=== PATIENT | female | born 1950 | race Asian ===

== ENCOUNTER 2021-01-28 15:18 | Outpatient (REF) | payer MEDICARE, MEDICAID, SELFPAY ==
--- NOTE | ~2021-01-28 | MM_ITS ---
EXAMINATION: MM SCREENING DIGITAL BREAST TOMOSYNTHESIS, BILATERAL CLINICAL INFORMATION: Screening. Asymptomatic. The lifetime risk of breast cancer based on the Tyrer-Cuzick Model is 3.1%. COMPARISON: Mammography: March 05, 2017 and March 18, 2015 TECHNIQUE: Digital breast tomosynthesis is performed in both the craniocaudal and mediolateral oblique views along with computer-aided detection (CAD). Synthesized 2D images are generated from the tomosynthesis. FINDINGS: There are scattered areas of fibroglandular density (ACR BI-RADS breast composition Category b). There are no significant masses, abnormal calcifications, or other abnormalities. MM/MM tomosynthesis screening BI IMPRESSION: There are no significant changes from prior study. ASSESSMENT: BI-RADS 1: Negative RECOMMENDATION: Routine annual mammography screening. This patient's information was entered into a reminder system with a target due date for their next mammogram.
== END 2021-01-28 15:19 | disposition home or self-care (01) ==
LOC: HO.MAMMO 15:18
PROVIDERS: PCP Internal Medicine; Visit Provider Internal Medicine
DX: Z12.31 Encounter for screening mammogram for malignant neoplasm of breast (principal)
CPT/HCPCS: 77063; 77067

== ENCOUNTER 2021-02-05 10:10 | Outpatient (REF) | payer MEDICARE, MEDICAID, SELFPAY ==
[2021-02-05 14:29] LABS: MANUAL DIFF FLAG NO
[2021-02-05 14:48] LABS: Basophils Percent Auto 0.5 % (0-2); Eosinophils Absolute Auto 0.2 X10*3/uL (0.0-0.4); Eosinophils Percent Auto 2.5 % (0-4); Hematocrit 38.5 % (37-47); Hemoglobin 12.6 g/dl (12.0-16.0); Imm Gran Abs Auto 0.01 X10*3/uL (0.00-0.03); Imm Gran Pct Auto 0.2 % (0.0-0.4); Lymphocytes Absolute Auto 2.6 X10*3/uL (1.2-4.9); Lymphocytes Percent Auto 41.1 % (20-40); Mean Corpuscular HGB Conc 32.7 g/dl (31.0-35.0); Mean Corpuscular Hemoglobin 27.5 pg (27.0-33.0); Mean Corpuscular Volume 84.1 fL (80-98); Mean Platelet Volume 12.1 fL (9.4-12.3); Monocytes Absolute Auto 0.6 X10*3/uL (0.1-1.2); Monocytes Percent Auto 9.5 % (2-11); Neutrophils Absolute Auto 2.9 X10*3/uL (2.0-8.3); Neutrophils Percent Auto 46.2 % (45-73); Platelet Count 252 X10*3/uL (160-400); Red Blood Count 4.58 X10*6/uL (4.20-5.50); Red Cell Distribution Width 12.5 % (11.0-16.0); White Blood Count 6.3 X10*3/uL (4.8-10.8)
[2021-02-05 14:56] LABS: Estimated Average Glucose 240 mg/dL
[2021-02-05 15:07] LABS: Alanine Aminotransferase 13 U/L (0-31); Albumin Level 4.2 g/dL (3.5-5.0); Alkaline Phosphatase 51 U/L (39-117); Anion Gap 17 (12-20); Aspartate Amino Transferase 15 U/L (5-31); Bilirubin Total 0.4 mg/dL (0.0-1.0); Blood Urea Nitrogen 14 mg/dL (9-16); Calcium 9.4 mg/dL (8.4-10.2); Carbon Dioxide 25 mmol/L (22-29); Chloride 100 mmol/L (96-108); Cholesterol 258 mg/dL; Estimated Glomerular Filt Rate > 60; Glucose Fasting 226 mg/dL (60-99); HDL Cholesterol 70 mg/dL; LDL Cholesterol Calculated 152 mg/dl; Potassium 4.6 mmol/L (3.3-5.1); Sodium 137 mmol/L (135-145); Total Protein 6.9 g/dL (6.5-8.0); Triglycerides 183 mg/dL
[2021-02-05 15:07] LABS: Creatinine Urine 74.01 mg/dL; Microalbumin Urine < 5.0 mg/L
[2021-02-05 15:36] LABS: Vitamin B12 626 pg/mL (200-900)
== END 2021-02-05 10:11 | disposition home or self-care (01) ==
LOC: HO.10HDL 10:10
PROVIDERS: Visit Provider Internal Medicine
DX: E11.9 Type 2 diabetes mellitus without complications (principal); E78.00 Pure hypercholesterolemia, unspecified; F06.8 Other specified mental disorders due to known physiological condition; I10 Essential (primary) hypertension
CPT/HCPCS: 36415; 80053; 80061; 82043; 82607; 83036; 84443; 85025

== ENCOUNTER 2021-02-06 12:52 | Outpatient (REF) | payer MEDICARE, MEDICAID, SELFPAY ==
--- NOTE | 2021-02-06 15:00 | MHC.AU.MED ---
Medical Clearance for Hearing Instrumentation Date: 02/07/21 Patient Name: Taj Carballo Date of : 1950 Primary Care Provider: Referring Provider: Charla Javed MD We have seen your patient on 02/07/21 and have determined that they are a candidate for amplification (See accompanying report). Specifically, they would benefit from: Hearing aid use in the right ear Hearing aid use in the left ear Hearing aid use in both ears There is a statute that addresses Medical Evaluation Requirements prior to fitting a patient with a hearing aid. According to [place] statute 265 CMR:6.03(1), (a) General. Except as provided in 265 CMR 6.03(1)(b), a waiter/waitress club shall not sell a hearing aid unless the prospective user has presented to the waiter/waitress club a written statement signed by a licensed physician that states that the patient's hearing loss has been medically evaluated and the patient may be considered a candidate for a hearing aid. The medical evaluation must have taken place within the preceding six months. Please note: Due to the [place] Statute referenced above, we cannot accept a signature other than that of a licensed physician. SLIP [employer]OVER SEAMSTRESS and PA signatures cannot be accepted. I am in agreement with the above recommendation. There is no medical contraindication for hearing instrumentation. Physician Signature Date Physician Name (Printed)
--- NOTE | 2021-02-06 15:59 | MHC.AU.HAS ---
Hearing Aid Evaluation Date of Visit: 02/06/21 Historical Information: Description of Hearing: Moderately severe to severe mixed hearing loss bilaterally. Current personal amplification information, if applicable: LOST- 2016 Phonak Virto V50-312 canal aids bilaterally Summary: Mrs. Carballo lost her previous hearing aids while living in [place] for the past three years. She obtained an Oticon ITC hearing aid for the left ear while in [place], but notes that it does not work well and she is still struggling to hear. Updated binaural amplification is recommended to help facilitate improved communication. Mrs. Carballo would prefer to stay with a smaller ITE style hearing aid. Earmolds impressions were taken without incident. Hearing Aid Prescription: Based on the individual?s shared listening needs, communication environments, dexterity, desire for connectivity, and personal preferences, the following prescription for amplification has been made: Right ear: Inspection Manager: Appetas Model: Felicity i1600 ITC Color: [place] Pot[employer] Peeling Machine Operator: 130/70 Left ear: Left ear prescription to be same as Right Hearing Aid above: Inspection Manager: Bruno Model: Felicity i1600 ITC Color: [place] Pot[employer] Peeling Machine Operator: 130/70 Plan of Care: Action Taken/Action Needed: Medical Clearance to be requested from PCP/ENT. Hearing Instrument Fitting to be scheduled when materials arrive. Hearing aids will be ordered once medical clearance is received. Primary Diagnosis: H90.6 Mixed Hearing Loss, Bilateral Signature: Provider: Miguel Miguel, [facility]
--- NOTE | 2021-02-06 16:54 | MHC.AU.AHA ---
Adult Audiological Evaluation Date of Visit: 02/06/21 Reason for Appointment: Audiological re-evaluation due to concern for decreased hearing. She was accompanied by her daughter who translated for her. 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 Mrs. Carballo has chosen not to pursue surgery to treat middle-ear dysfunction. She previously used hearing aids issued from our clinic, but notes that she lived in [place] for the past three years and the hearing aids were lost. She obtained a new hearing aid for the left ear while living in [facility], but notes that she continues to struggle to hear and communicate. She denies any changes to her medical history. Previous Hearing Test Results: [facility] [place], 01/22/2016 - Moderate to severe mixed hearing loss bilaterally. Middle-ear dysfunction bilaterally. Medical History: Medical History: Diabetes, High Blood Pressure Hearing Instrument History- Right Ear: Emr Trainer: Phonak Model: Virto V50-312- LOST Dispensed By: [facility] Date of Fittin02/18/2016 Hearing Instrument History- Left Ear: Emr Trainer: Phonak Model: Virto V50-312 - LOST Dispensed By: [facility] Date of Fittin02/18/2016 Otoscopy: Right Ear: Unremarkable Left Ear: Unremarkable Tympanometry: Tympanometry performed due to: History of middle ear dysfunction Right Ear: Reduced Middle Ear Compliance (Type As) Left Ear: Reduced Middle Ear Compliance (Type As) Hearing Evaluation: Transducer(s) Used: Circumaural Headphones, Bone Conduction Method: Conventional Audiometry Stimuli Used: Pure Tones Right Ear: Description of Hearing: Severe mixed hearing loss 250-1000 Hz, severe sensorineural hearing loss at 2000 Hz, and severe mixed hearing loss 7652-5284 Hz. Left Ear: Description of Hearing: Moderately severe mixed hearing loss 250-500 Hz, sloping to a severe mixed loss at 1000 Hz, rising to a moderately-severe sensorineural hearing loss at 2000 Hz, then sloping to a moderately severe to severe mixed loss from 4906-1650 Hz. Speech Recognition Threshold (SRT): Method Used: Not performed at today's visit due to language barriers. Word Discrimination: Method: Not performed at today's visit due to language barriers. Comparison: Compared to most recent evaluation: Slight decreases in hearing sensitivity in the right ear. Hearing is stable in the left ear. Recommendations: Audiological re-evaluation in one year. Medical clearance from a physician is required before fitting. Hearing aid(s) will be ordered after approval is received. Mrs. Carballo is interested in pursuing new hearing aids. Her previous hearing aids (that have since been lost) were obtained five years ago, so she is due for an update. She would like to remain with ITE style hearing aids and earmolds impressions were taken today without incident. Diagnosis: Primary Diagnosis: H90.6 Mixed Hearing Loss, Bilateral Services Performed: Pure Tone- Air & Bone (CPT 75886) Tympanometry (CPT 63211) Signature: Provider: Miguel Miguel, CCC-A
== END 2021-02-06 12:53 | disposition home or self-care (01) ==
LOC: HO.SH 12:52
PROVIDERS: Visit Provider Internal Medicine
DX: Z46.1 Encounter for fitting and adjustment of hearing aid (principal); H90.6 Mixed conductive and sensorineural hearing loss, bilateral
CPT/HCPCS: 92553; 92567; 92591; V5275

== ENCOUNTER 2021-05-13 10:17 | Outpatient (REF) | payer MEDICARE, MEDICAID, SELFPAY ==
[2021-05-13 15:07] LABS: Estimated Average Glucose 143 mg/dL; Hemoglobin A1c % 6.6 %
[2021-05-13 15:25] LABS: Alanine Aminotransferase 17 U/L (0-31); Albumin Level 4.3 g/dL (3.5-5.0); Alkaline Phosphatase 40 U/L (39-117); Anion Gap 13 (12-20); Aspartate Amino Transferase 19 U/L (5-31); Bilirubin Total 0.5 mg/dL (0.0-1.0); Blood Urea Nitrogen 12 mg/dL (9-16); Calcium 9.6 mg/dL (8.4-10.2); Carbon Dioxide 26 mmol/L (22-29); Chloride 105 mmol/L (96-108); Estimated Glomerular Filt Rate > 60; Glucose Random 113 mg/dL (60-115); Potassium 4.3 mmol/L (3.3-5.1); Sodium 140 mmol/L (135-145); Total Protein 7.3 g/dL (6.5-8.0)
[2021-05-13 15:27] LABS: Vitamin D 25-OH Total 13.8 ng/mL (>30)
== END 2021-05-13 10:18 | disposition home or self-care (01) ==
LOC: HO.10HDL 10:17
PROVIDERS: Visit Provider Internal Medicine
DX: E11.65 Type 2 diabetes mellitus with hyperglycemia (principal); E78.00 Pure hypercholesterolemia, unspecified; I10 Essential (primary) hypertension; M81.8 Other osteoporosis without current pathological fracture
CPT/HCPCS: 36415; 80053; 82306; 83036

== ENCOUNTER 2021-05-14 09:18 | Outpatient (REF) | payer MEDICARE, MEDICAID, SELFPAY | END 2021-05-14 09:19 | disposition home or self-care (01) | LOC: HO.HAP 09:18 | PROVIDERS: Visit Provider Internal Medicine | DX: Z46.1 Encounter for fitting and adjustment of hearing aid (principal); H90.6 Mixed conductive and sensorineural hearing loss, bilateral | CPT/HCPCS: V5011; V5020; V5160; V5259; V5266 ==

== ENCOUNTER 2021-06-06 08:51 | Outpatient (REF) | payer MEDICARE, MEDICAID, SELFPAY ==
--- NOTE | ~2021-06-06 | FL_ITS ---
EXAMINATION: FL BARIUM SWALLOW CLINICAL INFORMATION: Dysphagia. COMPARISON: None TECHNIQUE: Barium swallow examination was performed using fluoroscopic evaluation in addition to multiple fluoroscopic spot views. The patient was imaged both upright and prone and using both thick and thin sulfate along with effervescent granules. A barium tablet was also administered. Fluoroscopy Time: 0.8 minutes DAP: 3.8 Gycm2 Images: 40 FINDINGS: The swallowing mechanism is normal. No aspiration or penetration is seen. There is mild gastroesophageal reflux. The esophagus is otherwise normal appearing. Esophageal motility is normal. No hernia, mass, stricture or evidence of esophagitis is seen. The barium tablet passed freely into the stomach. FL/FL barium swallow IMPRESSION: Mild gastroesophageal reflux, otherwise unremarkable exam.
== END 2021-06-06 08:52 | disposition home or self-care (01) ==
LOC: HO.XRAY 08:51
PROVIDERS: PCP Internal Medicine; Visit Provider Internal Medicine Gastroenterology
DX: R13.10 Dysphagia, unspecified (principal)
CPT/HCPCS: 74220

== ENCOUNTER 2021-08-06 08:47 | Outpatient (REF) | payer MEDICARE, MEDICAID, SELFPAY ==
[2021-08-06 10:57] LABS: Estimated Average Glucose 131 mg/dL; Hemoglobin A1c % 6.2 %
[2021-08-06 11:04] LABS: Alanine Aminotransferase 16 U/L (0-31); Albumin Level 4.2 g/dL (3.5-5.0); Alkaline Phosphatase 34 U/L (39-117); Anion Gap 12 (12-20); Aspartate Amino Transferase 16 U/L (5-31); Bilirubin Total 0.6 mg/dL (0.0-1.0); Blood Urea Nitrogen 15 mg/dL (9-16); Calcium 9.4 mg/dL (8.4-10.2); Carbon Dioxide 27 mmol/L (22-29); Chloride 106 mmol/L (96-108); Cholesterol 138 mg/dL; Estimated Glomerular Filt Rate > 60; Glucose Random 77 mg/dL (60-115); HDL Cholesterol 59 mg/dL; LDL Cholesterol Calculated 55 mg/dl; Potassium 4.3 mmol/L (3.3-5.1); Sodium 141 mmol/L (135-145); Total Protein 6.9 g/dL (6.5-8.0); Triglycerides 124 mg/dL
== END 2021-08-06 08:48 | disposition home or self-care (01) ==
LOC: HO.10HDL 08:47
PROVIDERS: Visit Provider Internal Medicine
DX: E11.65 Type 2 diabetes mellitus with hyperglycemia (principal); E78.00 Pure hypercholesterolemia, unspecified
CPT/HCPCS: 36415; 80053; 80061; 83036

== ENCOUNTER 2021-08-06 09:07 | Outpatient (REF) | payer MEDICARE, MEDICAID, SELFPAY | END 2021-08-06 09:08 | disposition home or self-care (01) | LOC: HO.HAP 09:07 | PROVIDERS: Visit Provider Internal Medicine | DX: Z46.1 Encounter for fitting and adjustment of hearing aid (principal); H90.6 Mixed conductive and sensorineural hearing loss, bilateral | CPT/HCPCS: V5266 ==

== ENCOUNTER 2021-11-19 07:43 | Outpatient (REF) | payer MEDICARE, MEDICAID, SELFPAY ==
[2021-11-19 10:36] LABS: MANUAL DIFF FLAG NO
[2021-11-19 10:44] LABS: Basophils Percent Auto 0.3 % (0-2); Eosinophils Absolute Auto 0.3 X10*3/uL (0.0-0.4); Eosinophils Percent Auto 4.5 % (0-4); Hematocrit 37.2 % (37.0-47.0); Imm Gran Abs Auto 0.01 X10*3/uL (0.00-0.03); Imm Gran Pct Auto 0.2 % (0.0-0.4); Lymphocytes Absolute Auto 3.3 X10*3/uL (1.2-4.9); Lymphocytes Percent Auto 57.5 % (20-40); Mean Corpuscular HGB Conc 32.3 g/dl (31.0-35.0); Mean Corpuscular Hemoglobin 27.5 pg (27.0-33.0); Mean Corpuscular Volume 85.1 fL (80.0-98.0); Mean Platelet Volume 11.3 fL (9.4-12.3); Monocytes Absolute Auto 0.4 X10*3/uL (0.1-1.2); Monocytes Percent Auto 7.7 % (2-11); Neutrophils Absolute Auto 1.7 x10*3/uL (2.0-8.3); Neutrophils Percent Auto 29.8 % (45-73); Platelet Count 264 X10*3/uL (160-400); Red Blood Count 4.37 X10*6/uL (4.20-5.50); Red Cell Distribution Width 13.2 % (11.0-16.0); White Blood Count 5.7 X10*3/uL (4.8-10.8)
[2021-11-19 10:49] LABS: Estimated Average Glucose 126 mg/dL
[2021-11-19 10:58] LABS: Alanine Aminotransferase 15 U/L (0-31); Albumin Level 4.2 g/dL (3.5-5.0); Alkaline Phosphatase 30 U/L (39-117); Anion Gap 10 (12-20); Aspartate Amino Transferase 17 U/L (5-31); Bilirubin Total 0.5 mg/dL (0.0-1.0); Blood Urea Nitrogen 15 mg/dL (9-16); Carbon Dioxide 26 mmol/L (22-29); Chloride 108 mmol/L (96-108); Estimated Glomerular Filt Rate > 60; Glucose Fasting 92 mg/dL (60-99); Potassium 4.4 mmol/L (3.3-5.1); Sodium 140 mmol/L (135-145); Total Protein 6.9 g/dL (6.5-8.0)
[2021-11-19 11:13] LABS: Thyroid Stimulating Hormone 1.36 uIU/mL (0.32-4.0)
[2021-11-19 11:29] LABS: Vitamin B12 302 pg/mL (200-900)
== END 2021-11-19 07:44 | disposition home or self-care (01) ==
LOC: HO.10HDL 07:43
PROVIDERS: Visit Provider Internal Medicine
DX: E11.9 Type 2 diabetes mellitus without complications (principal); E78.00 Pure hypercholesterolemia, unspecified; H81.10 Benign paroxysmal vertigo, unspecified ear; M79.18 Myalgia, other site
CPT/HCPCS: 36415; 80053; 82607; 83036; 84443; 85025

== ENCOUNTER 2021-12-16 12:27 | Outpatient (REF) | payer MEDICARE, MEDICAID, SELFPAY | END 2021-12-16 12:28 | disposition home or self-care (01) | LOC: HO.HAP 12:27 | PROVIDERS: Visit Provider Internal Medicine | DX: Z46.1 Encounter for fitting and adjustment of hearing aid (principal); H90.6 Mixed conductive and sensorineural hearing loss, bilateral | CPT/HCPCS: V5266 ==

== ENCOUNTER 2022-01-26 09:37 | Outpatient (REF) | payer MEDICARE, MEDICAID, SELFPAY | END 2022-01-26 09:38 | disposition home or self-care (01) | LOC: HO.HAP 09:37 | PROVIDERS: Visit Provider Internal Medicine | DX: Z13.89 Encounter for screening for other disorder (principal) ==